=== PATIENT | female | born 1995 | race Caucasian/White ===

== ENCOUNTER 2017-02-04 07:54 | Emergency (ER) | payer SELFPAY ==
[~2017-02-04] VITALS: Ht 167.6 cm; Wt 93.0 kg
[2017-02-04 08:00] VITALS: BP 151/97
[2017-02-04] MEDS ORDERED: ALBU8.5H8 INH (08:50)
[2017-02-04] MEDS ORDERED: PRED20TA PO ×2 (08:50→08:56)
--- NOTE | 2017-02-04 08:55 | PHYS DOC ---
General Chief Complaint: COUGH Stated Complaint: RUNNY NOSE,SORE THROAT,COUGH Time Seen by MD: 08:18 Source: patient Exam Limitations: no limitations Problems: History of Present Illness Initial Comments Patient is a 21-year-old female who comes to the ED complaining of dry cough and runny nose. Patient states for the past 4 days she's had clear nasal drainage sneezing and watery eyes a dry scratchy throat worse in the mornings. No fever chills sweats or myalgias no facial pain no purulent nasal discharge. She denies any dysphasia or odynophagia no headache abdominal pain nausea or vomiting. She does admit to smoking over a pack a day of cigarettes daily as well as marijuana daily. Blood pressure is 151/97 on arrival however states she did have a few cigarettes immediately prior to coming to the emergency department. She denies any chest pain or shortness of breath and has had no pre-arrival treatment. She is normally healthy her only medical problem is psoriasis for which he uses topical medications. Timing/Duration: last week Severity: moderate Location: eye (R), eye (L), nose, throat Prearrival Treatment: no prearrival treatment Modifying Factors: worse with coughing Associated Symptoms: nasal congestion/drainage, sore throat Allergies: Coded Allergies: No Known Drug Allergies (Unverified , 02/04/17) Past Medical History Medical History: other (psoriasis) Surgical History: noncontributory Social History Smoker: secondhand Alcohol: none Drugs: marijuana Constitutional: denies chills, denies diaphoresis, denies fever Eyes: see HPI, denies blurred vision, denies decreased acuity Ears: denies dizziness, denies pain, denies tinnitus Nose: denies clots, congestion, denies epistaxis, clear discharge Throat: see HPI, denies neck stiffness, denies hoarse, denies aphonia, denies muffled, denies painful swallowing, denies difficulty with fluids Respiratory: cough, denies shortness of breath, denies wheezing Cardiovascular: denies chest pain, denies palpitations, denies syncope Gastrointestinal: denies diarrhea, denies nausea, denies vomiting Musculoskeletal: denies back pain, denies joint swelling, denies neck pain Physical Exam General Appearance: WD/WN, no apparent distress Eyes: bilateral eye PERRL, bilateral eye EOMI, bilateral eye other ( conjunctivae injected bilaterally) Ears: bilateral ear auricle normal, bilateral ear canal normal, bilateral ear TM normal Nose: other (turbinates inflamed clear nasal discharge no sinus tenderness or purulence noted) Mouth/Throat: pharynx normal (pharynx is normal with clear postnasal drip airway is patent there are no vesicles or exudate) Neck: non-tender, supple Cardiovascular/Respiratory: normal peripheral pulses, no respiratory distress ( faint wheezes bilaterally with good air movement no rales or rhonchi) Neurologic/Psychiatric: hand bander II-XII nml as tested, no motor/sensory deficits, alert, normal mood/affect, oriented x 3 Skin: normal color, warm/dry Orders, Labs, Meds I discussed the possibility of viral etiology as well as allergies and educated that continuing to smoke would not help her symptoms. I advised her to seek help with substance abuse and discussed the treatment plan she expressed agreement and understanding. Departure Time of Disposition: 08:51 Disposition: 01 HOME, SELF-CARE Diagnosis: URI (viral), allergic rhinitis, reactive airway, t Condition: GOOD Patient Instructions: Smoking Cessation Additional Instructions: Off work thru Wednesday, note given. OTC cetirizine am, benadryl pm Aggressive hydration with gatorade, water. OTC tylenol, ibuprofen, and analgesic throat sprays as needed. Listerine gargles three times daily following brushing/flossing. Stop smoking, seek medical assistance if necessary. Rx: prednisone, albuterol Follow up with a doctor on Wednesday for recheck, ED staff can give you a list of local doctors who take walk-in appointments. Return to ED with new or changing symptoms. REANNA OCONNELL DO Feb 04, 2017 08:54
[2017-02-04] MEDS ORDERED: ALBU18HF IH (08:56)
== END 2017-02-04 09:31 | disposition home or self-care (01) ==
LOC: ER 07:54
DX: J06.9 Acute upper respiratory infection, unspecified (principal); J30.9 Allergic rhinitis, unspecified; J45.909 Unspecified asthma, uncomplicated; F17.210 Nicotine dependence, cigarettes, uncomplicated; F12.90 Cannabis use, unspecified, uncomplicated
CPT/HCPCS: 99283

== ENCOUNTER 2017-10-06 10:26 | Emergency (ER) | payer SELFPAY ==
[~2017-10-06] VITALS: Ht 167.6 cm; Wt 86.2 kg
[~2017-10-06 10:26] MED LIST: ALBU18HF IH; ALBU8.5H8 INH; PRED20TA PO
[2017-10-06] MEDS ORDERED: GUAI600T47 PO (10:45)
[2017-10-06] MEDS ORDERED: PRED50TA PO (10:45)
[2017-10-06] MEDS ORDERED: CEPH-264 PO (10:45)
[2017-10-06 10:50] VITALS: BP 137/83
--- NOTE | 2017-10-06 11:11 | ED.ADGEN ---
Past History Past Medical History: Bronchitis, Other Past Surgical History: No Surgical History Alcohol Use: Occasionally Drug Use: Marijuana Adult General Chief Complaint Chief Complaint Cough HPI HPI Patient is a 21-year-old female who presents with wet nonproductive cough the past 4 days and shortness breath with chest tightness and wheezes since chest today. No fever chills, nausea vomiting or sweats. Patient is a current smoker. No history of asthma. Patient states she has similar episodes of chest tightness with bronchospasm 2-3 times yearly. She does not currently have a primary care physician.[] Review of Systems Review of Systems Review symptoms as per history of present illness. All other review symptoms are negative. All other systems were reviewed and found to be within normal limits, except as documented in this note. Allergies Allergies Allergies Coded Allergies Type Severity Reaction Last Updated Verified No Known Drug Allergies 02/04/17 No Physical Exam Physical Exam Constitutional: Well developed, well nourished, no acute distress, non-toxic appearance. [] HENT: Normocephalic, bilateral external ears normal, oropharynx moist, no oral exudates, nose, congestion, clear rhinorrhea. [] Eyes: PERRLA, EOMI, conjunctiva normal. [] Neck: Normal range of motion, no tenderness. [] Cardiovascular:Heart rate regular rhythm, no murmur [] Lungs & Thorax: Respirations nonlabored, coarse rhonchi with occasional exp wheeze.[] Abdomen: Bowel sounds normal, soft, no tenderness. [] Skin: Warm, dry,. [] Back: No tenderness, no CVA tenderness. [] Extremities: No tenderness, no edema. [] Neurologic: Alert and oriented X 3, normal motor function, normal sensory function, no focal deficits noted. [] Psychologic: Affect normal, judgement normal, mood normal. [] Current Patient Data Vital Signs Vital Signs Date Time Temp Pulse Resp B/P (MAP) Pulse Ox O2 Delivery O2 Flow Rate FiO2 10/06/17 10:50 81 20 137/83 (101) 97 Room Air 10/06/17 10:26 97.8 EKG EKG [] Radiology/Procedures Radiology/Procedures [] Course & Med Decision Making Course & Med Decision Making Pertinent Labs and Imaging studies reviewed. (See chart for details) [Clinically stable] Final Impression Final Impression [1. acute bronchitis with bronchospasm] Dragon Disclaimer Dragon Disclaimer This electronic medical record was generated, in whole or in part, using a voice recognition dictation system. MARK SADLER DO Oct 06, 2017 11:11
== END 2017-10-06 10:50 | disposition home or self-care (01) ==
LOC: ER 10:26
DX: J20.9 Acute bronchitis, unspecified (principal)
CPT/HCPCS: 99283

== ENCOUNTER 2020-06-30 15:09 | Emergency (ER) | payer BC ==
[~2020-06-30] VITALS: Ht 167.6 cm; Wt 64.5 kg
[~2020-06-30 15:09] MED LIST changes: -ALBU18HF IH; +ALBU2.5V8 IH; +ALBU2.5V8 INH; -ALBU8.5H8 INH; +CEPH-264 PO; +GUAI600T47 PO; +PRED50TA PO
--- NOTE | 2020-06-30 15:16 | PHYS DOC ---
Past History Past Medical History: Bronchitis, Other Past Surgical History: No Surgical History Alcohol Use: Occasionally Drug Use: Marijuana Adult General Chief Complaint Chief Complaint: BACK PAIN OR INJURY [facility] HPI Patient is a 24-year-old female presents to the emergency department with complaints of waking up this morning at 1030 with low back pain that radiated down her left buttocks. Patient states she has some nausea, took 1000 mg of Tylenol approximately 1 hour prior to arrival that brought her pain from a 10/10 down to a 7/10 pain in a 1-10 pain scale. Patient reports her last menstrual cycle ended 25 days ago and is due to start within the next 3 years or so days. Patient denies any vaginal discharge, denies urinary tract infection signs and symptoms, denies STI concerns. Patient denies any abdominal pain, vomiting or diarrhea or constipation. Patient denies any chest pain, chest palpitations, chest congestion, denies shortness of breath, nasal congestion, sore throat, nose or ear pains. Patient denies any recent fever or chills, denies any new loss of taste or loss of smell. Patient states she has had pain like this before and has required a steroid for help. Patient denies any loss of bladder or loss of bowel. Patient denies numbness or tingling down her extremities. Review of Systems Review of Systems 14 body systems of review of systems have been reviewed. See HPI for pertinent positives and negative responses, otherwise all other systems are negative, nonpertinent or noncontributory. Allergies Allergies Allergies Coded Allergies Type Severity Reaction Last Updated Verified No Known Drug Allergies 02/04/17 No Physical Exam Physical Exam Constitutional: Well developed, well nourished, no acute distress, non-toxic appearance. HENT: Normocephalic, atraumatic, bilateral external ears normal, oropharynx moist, no oral exudates, nose normal. Bilateral TMs within normal limits, right submental lymphadenopathy appreciated, no other lymphadenopathy of the head or neck appreciated. Dentition normal without dental caries Eyes: PERRLA, EOMI, conjunctiva normal, no discharge. Neck: Normal range of motion, no tenderness, supple, no stridor. No nuchal rigidity, no meningismus signs. Cardiovascular:Heart rate regular rhythm, no murmur, heart sounds S1-S2 to auscultation. Lungs & Thorax: Bilateral breath sounds clear to auscultation all lung morocho. Abdomen: Bowel sounds normal, soft, no tenderness, no masses, no pulsatile masses. Skin: Warm, dry, no erythema, no rash. Back: No right-sided or left-sided CVA tenderness, no midline spinal tenderness, there is left-sided low back pain with radiation to mid buttocks to palpation, no swelling distally, moves all extremities well. Extremities: No tenderness, no cyanosis, no clubbing, ROM intact, no edema. No swelling or rashes appreciated, +2/4 pulses. Distal cap refill less than 2 seconds. Neurologic: Alert and oriented X 3, normal motor function, normal sensory function, no focal deficits noted. Psychologic: Affect normal, judgement normal, mood normal. EKG EKG [] Radiology/Procedures Radiology/Procedures [] Heart Score C/O Chest Pain: No Risk Factors: Risk Factors: DM, Current or recent (<one month) smoker, HTN, HLP, family hi story of CAD, obesity. Risk Scores: Risk Factors: DM, Current or recent (<one month) smoker, HTN, HLP, family history of CAD, obesity. Course & Med Decision Making Course & Med Decision Making Pertinent Labs and Imaging studies reviewed. (See chart for details) 24-year-old female, vital signs reviewed, presents emergency department with concerns of low back pain physical examination was consistent with sciatica, there was no saddle anesthesia. Discussed with patient will obtain urine for UA and test prior to considering treatment patient was amenable to this plan. The patient was not , the patient did not produce enough urine to run a urinalysis assay. We will treat with IM Depo-Medrol, 1 tablet 5/325 p.o. Vicodin, intramuscular Toradol. Upon reexamination of the patient, patient states she is pain-free and wishes to go home. Discussed patient's lymphadenopathy of the right submental. Patient states that she gets seasonal allergies and sometimes notices her lymph nodes become swollen every now and then and it is not concerning to her at this time. The patient's throat was not erythematous, there was no postnasal drip, there is no signs of deep tissue infection of the throat. The patient was nontoxic in appearance. Discussed with patient need for her to follow-up with primary care for further evaluation of her lymphadenopathy if it is persistent. Patient states she will follow-up with primary care this week. Patient gave verbal understanding of discharge home instructions, follow-up with primary care, return to ER precautions and concerns, was discharged home. Dragon Disclaimer Dragon Disclaimer This electronic medical record was generated, in whole or in part, using a voice recognition dictation system. Departure Departure: Impression: Primary Impression: Lumbago Additional Impression: Lymphadenopathy, submandibular Disposition: 01 DC HOME SELF CARE/HOMELESS Condition: GOOD Referrals: ALDA BUNCH DO (PCP) Patient Instructions: Back Pain, Adult Additional Instructions: Take medications as prescribed, follow-up with your primary care doctor soon, return to emergency department for worsening symptoms or other concerns. EMERGENCY DEPARTMENT GENERAL DISCHARGE INSTRUCTIONS Thank you for coming to [facility] (ED) today and trusting us with you care. We trust that you had a positivie experience in our Emergency Department. If you wish to speak to the department management, you may call the director at [phone]. YOUR FOLLOW UP INSTRUCTIONS ARE FOLLOWS: 1. Do you have a private Doctor? If you do not have a private doctor, please ask for a resource list of physicians or clinics that may be able to assist you with follow up care. 2. The Emergency Physician has interpreted your x-rays. The X-Ray specialist will also review them. If there is a change in the findings, you will be notified in 48 hours when at all possible. 3. A lab test or culture has been done, your results will be reviewed and you will be notified if you need a change in treatment. ADDITIONAL INSTRUCTIONS AND INFORMATION: 1. Your care today has been supervised by a physician who is specially trained in emergency care. Many problems require more than one evaluation for a complete diagnosis and treatment. We recommend that you schedule your follow up appointment as recommended to ensure complete treatment of you illness or injury. If you are unable to obtain follow up care and continue to have a problem, or if your condition worsens, we recommend that you return to the ED. 2. We are not able to safely determine your condition over the phone nor are we able to give sound medical advice over the phone. For these safety reasons, if you call for medical advice we will ask you to come to the ED for further evaluation. 3. If you have any questions regarding these discharge instructions please call the ED at [phone]. SAFETY INFORMATION: In the interest of safety, wellness, and injury prevention; we encourage you to wear your sealbelt, if you smoke; quite smoking, and we encourage family to use a protective helmet for bicycling and other sporting events that present an increased risk for head injury. IF YOUR SYMPTOMS WORSEN OR NEW SYMPTOMS DEVELOP, OR YOU HAVE CONCERNS ABOUT YOUR CONDITION; OR IF YOUR CONDITION WORSENS WHILE YOU ARE WAITING FOR YOUR FOLLOW UP APPOINTMENT; EITHER CONTACT YOUR PRIMARY CARE DOCTOR, THE PHYSICIAN WHOSE NAME AND NUMBER YOU WERE GIVEN, OR RETURN TO THE ED IMMEDIATELY. Scripts Prednisone (PREDNISONE) 20 Mg Tablet 1 TAB PO DAILY for BACK PAIN for 5 Days, #5 TAB Prov: KOBI COCHRAN APRN 06/30/20 Ibuprofen (IBUPROFEN) 600 Mg Tablet 600 MG PO TID PRN PRN for PAIN, #20 TAB 0 Refills Prov: KOBI COCHRAN APRN 06/30/20 Cyclobenzaprine Hcl (CYCLOBENZAPRINE HCL) 10 Mg Tablet 1 TAB PO TID PRN PRN for PAIN, #12 TAB 0 Refills Prov: KOBI COCHRAN APRN 06/30/20 Problem Qualifiers Primary Impression: Lumbago Chronicity: acute Back pain laterality: right Sciatica presence: with sciatica Sciatica laterality: sciatica of right side Qualified Codes: M54.41 - Lumbago with sciatica, right side KOBI COCHRAN APRN Jun 30, 2020 15:16
[2020-06-30] MEDS ORDERED: ONDANSETRON ODT 4 MG TAB.RAPDIS PO ONE (15:45)
[2020-06-30] MEDS ORDERED: HYDROcodone/APAP 5/325MG 1 TAB TABLET PO ONE (16:30)
[2020-06-30] MEDS ORDERED: methylPREDNISolone ACETATE 80 MG/ML VIAL. IM ONE (16:30)
[2020-06-30] MEDS ORDERED: KETOROLAC 60 MG/2 ML VIAL. IM ONE (16:30)
[2020-06-30] MEDS ORDERED: CYCL-331 PO (18:19)
[2020-06-30] MEDS ORDERED: IBUP600T16 PO (18:19)
[2020-06-30] MEDS ORDERED: PRED20TA PO (18:20)
[2020-06-30 18:27] VITALS: BP 148/78
== END 2020-06-30 18:24 | disposition home or self-care (01) ==
LOC: ER 15:09
DX: M54.41 Lumbago with sciatica, right side (principal); R59.1 Generalized enlarged lymph nodes
CPT/HCPCS: 81025; 96372; 99284; J1040; J1885; Q0162